=== PATIENT | female | born 1960 | race Caucasian/White ===

== ENCOUNTER 2016-09-18 09:32 | Day surgery (SDC) | payer BC, OTHER ==
[2016-09-17 18:23] VITALS: BMI 32.4
[~2016-09-18 09:32] MED LIST: ceFAZolin SODIUM 1 GM VIAL IVPB ONE
[2016-09-18] MEDS ORDERED: MIDAZOLAM HCL 2 MG/2 ML SINGLE DOSE VIAL ONE (10:41)
[2016-09-18] MEDS ORDERED: ceFAZolin SODIUM 1 GM VIAL IVPB ONE (10:57)
[2016-09-18] MEDS ORDERED: ACETAMINOPHEN 325 MG TABLET (FP) PO PRN (11:26)
[2016-09-18] MEDS ORDERED: IBUPROFEN 400 MG TABLET (FP) PO PRN (11:26)
[2016-09-18] MEDS ORDERED: ONDANSETRON 4 MG/2 ML VIAL IVPUSH PRN (11:27)
[2016-09-18] MEDS ORDERED: oxyCODONE HCL 5 MG TABLET PO PRN (11:27)
[2016-09-18] MEDS ORDERED: LACTATED RINGERS SOLUTION 1,000 ML IV SCH (11:30)
--- NOTE | 2016-09-18 11:55 | OP ---
DATE OF OPERATION: 09/18/2016 PREOPERATIVE DIAGNOSIS: Postmenopausal bleeding. POSTOPERATIVE DIAGNOSIS: Postmenopausal bleeding. PROCEDURE: Hysteroscopy and dilatation and curettage. SURGEON: Ramez Nassar MD ANESTHESIA: General by . DESCRIPTION OF PROCEDURE: While patient was prepped and draped under general anesthesia in lithotomy position, examination under anesthesia revealed vaginal bleeding, cervix closed, top normal, adnexa negative. During the procedure, a weighted speculum applied in the vagina. Cervix grasped with tenaculum. Cervical canal dilated up to number 31 Hegar. Uterine cavity was 8 cm. At this time, hysteroscopy was done with the help of the saline media, and entire endometrium and endocervix were evaluated. There was a polyp. After hysteroscopy, then D&C was done, and endocervical curetting was done. A small amount of tissue was removed. Then, endometrial curetting was done. The polyp was removed and sent to Pathology, and endometrial curetting was done. Then, a moderate amount of tissue was removed. Estimated blood loss was 20 mL. Patient tolerated the procedure, was sent to recovery room in good condition. Anneliese [id number]
[2016-09-18] MEDS ORDERED: IBUPROFEN 400 MG TABLET (FP) PO ONE (12:59)
[2016-09-18 14:00] VITALS: BP 117/74; PULSE 54
[2016-09-18 20:07] VITALS: TEMP 97.8
--- NOTE | 2016-09-21 10:14 | PATH ---
Surgical Pathology Report Patient Name: KATY ECKERT [facility]. Rec. #: [id number] /Age/Gender: 1960 (Age: 55) / F Account: [id number] Location: [facility] SURGICAL Taken: 09/18/2016 Received: 09/18/2016 Reported: 09/21/2016 Physicians: Ramez Nassar M.D. Specimen(s) Received A: ENDOCERVICAL CURETTINGS B: ENDOMETRIAL CURETTINGS Clinical History Postmenopausal bleeding Final Diagnosis A. ENDOCERVIX, CURETTING: ENDOMETRIAL TISSUE WITH AT LEAST COMPLEX ENDOMETRIAL HYPERPLASIA WITH ATYPIA, WITH AREAS WORRISOME FOR ENDOMETRIOID ADENOCARCINOMA B. 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 Comment: This case was discussed with Dr. Nassar on September 21, 2016. [employer]Match [employer] Protein analysis by immunohistochemistry is pending, and a report will follow. Electronically Signed Thomas Daliey M.D. Addendum Reported: 09/22/2016 Addendum Diagnosis Immunohistochemical stains on block B for MisMatch [employer]air Protein Analysis performed at [facility] in [place], [place] ([id number]) and interpreted at [facility] show the following: RESULTS: HMLH-1 INTACT NUCLEAR EXPRESSION HMSH-2 INTACT NUCLEAR EXPRESSION HMSH-6 INTACT NUCLEAR EXPRESSION PMS2 INTACT NUCLEAR EXPRESSION INTERPRETATION: No loss of nuclear expression of MMR proteins: low probability of microsatellite instability-high (MSI-H) Thomas Dailey M.D. Gross Description A. Received in formalin labeled "endocervical curettings," is a 1.4 x 1.0 x 0.2 cm aggregate of vasquez-brown soft tissue fragments. The formalin is filtered and the specimen is entirely submitted in one cassette. B. Received in formalin labeled "endometrial curettings and polyps," is a 2.5 x 2.3 x 0.3 cm aggregate of vasquez-brown soft tissue fragments. The formalin is filtered and the specimen is entirely submitted in one cassette. 09/18/201609/18/2016
== END 2016-09-18 13:45 | disposition home or self-care (01) ==
LOC: JASU-SURG 09:32
PROVIDERS: ATTEND Obstetrics & Gynecology
PROC: 0UDB8ZX Extraction of Endometrium, Via Natural or Artificial Opening Endoscopic, Diagnostic (ICD-10-PCS; principal; 2016-09-18 10:45)
DX: N95.0 Postmenopausal bleeding (principal)
CPT/HCPCS: 86850; 86900; 86901; 88305-TC; 94760